=== PATIENT | female | born 1970 | race Caucasian/White ===

== ENCOUNTER 2018-01-25 11:02 | Inpatient (IN) | payer OTHER, MEDICAID ==
[~2018-01-25] VITALS: Ht 152.4 cm; Wt 94.0 kg
[2018-01-25] VITALS (38 sets, daily range): BP systolic 73–127; BP diastolic 33–73
[~2018-01-25 11:02] MED LIST: OMEP20CA10; QUIN20TA; SIMV20TA6; insulin; metformin; naproxen
[2018-01-25] MEDS ORDERED: SODIUM CHLORIDE 0.9% 1000ML BAG (SEPSIS BOLUS) IV ONE (11:30)
[2018-01-25] MEDS ORDERED: PIPERACILLIN/TAZ 3.375G PREMIX 50 ML IV ONE (11:45)
[2018-01-25] MEDS ORDERED: VANCOMYCIN 1 G PREMIX 200 ML IV ONE (11:45)
[2018-01-25] MEDS ORDERED: LEVOFLOXACIN 750MG PREMIX 150 ML IV ONE (11:45)
[2018-01-25 12:21] LABS: HEMATOCRIT. 42.4 % (36.0-48.0); HEMOGLOBIN. 14.2 g/dL (12.0-16.0); MEAN CORPUSCULAR HEMOGLOBIN 28.8 pg (28.0-32.0); MEAN PLATELET VOLUME 8.7 fl (7.4-10.4); PLATELET 276 x1000/uL (130-400); RED BLOOD CELL COUNT 4.93 mill/uL (4.2-5.4); RED CELL DISTRIBUTION WIDTH 13.2 % (11.6-14.6)
[2018-01-25 12:25] LABS: CHLORIDE 100 mEq/L (98-107)
[2018-01-25 12:26] LABS: INR 0.9; PROTHROMBIN TIME 9.3 sec (9.1-11.1)
[2018-01-25] MEDS ORDERED: DEXTROSE 50% WATER 50ML SYRINGE IV ONE ×2 (12:45→12:50)
[2018-01-25] MEDS ORDERED: NOREPINEPHRINE 4 MG in DEXT 5% WATER 246 ML IV ONE ×2 (12:45→13:00)
[2018-01-25 13:03] LABS: PLATELET ESTIMATE NORMAL
[2018-01-25] MEDS ORDERED: LIDOCAINE HCL 1% 10 MG/ML 10ML VIAL ONE (13:10)
[2018-01-25 13:21] LABS: HCG SCREEN NEGATIVE
[2018-01-25 14:02] LABS: CLARITY URINE CLOUDY (CLEAR); COLOR URINE YELLOW (YELLOW); KETONES URINE TRACE (NEGATIVE); LEUKOCYTE ESTERASE URINE TRACE (NEGATIVE); NITRITE URINE NEGATIVE (NEGATIVE); OCCULT BLOOD URINE 1+ (NEGATIVE); PROTEIN URINE TRACE (NEGATIVE); SPECIFIC GRAVITY URINE 1.023 (1.005-1.030)
[2018-01-25] MEDS ORDERED: SODIUM CHLORIDE 0.9% 1,000 ML IV SCH (14:32)
[2018-01-25] MEDS ORDERED: GUAIFENESIN 200MG/10ML SUGAR FREE UDC PO PRN (14:45)
[2018-01-25] MEDS ORDERED: ONDANSETRON HCL 4MG/2ML INJ IV PRN (14:45)
[2018-01-25] MEDS ORDERED: DOCUSATE SODIUM 100MG CAPSULE PO PRN (14:45)
[2018-01-25] MEDS ORDERED: MAGNESIUM/ALUMINUM HYDROXIDE/SIMETHICONE 30ML UDC PO PRN (14:45)
[2018-01-25] MEDS ORDERED: NOREPINEPHRINE 4 MG in DEXT 5% WATER 246 ML IV PRN (16:00)
[2018-01-25] MEDS: ACETAMINOPHEN 325MG TABLET PO PRN (16:00)
[2018-01-25] MEDS: MIDODRINE HCL 2.5MG TABLET PO SCH (16:00)
[2018-01-25] MEDS ORDERED: POTASSIUM CHLORIDE 20MEQ/PACKET PO NR (16:15)
[2018-01-25] MEDS ORDERED: DEXT 5%/0.9% NACL 1,000 ML IV SCH (16:15)
[2018-01-25] MEDS ORDERED: FERR-71 PO (17:19)
[2018-01-25] MEDS ORDERED: LISI40TA4 MT (17:19)
[2018-01-25] MEDS ORDERED: INSU100I28 SQ (17:19)
[2018-01-25] MEDS ORDERED: IBUP-2030 PO (17:19)
[2018-01-25] MEDS ORDERED: DIPH25CA83 MT (17:19)
[2018-01-25] MEDS ORDERED: INSLIS SUBCUT (17:19)
[2018-01-25] MEDS ORDERED: P20 MT (17:19)
[2018-01-25] MEDS ORDERED: METF-816 MT (17:19)
[2018-01-25] MEDS ORDERED: METH2.5T PO (17:19)
[2018-01-25] MEDS ORDERED: FOLI-43 PO (17:19)
[2018-01-25] MEDS ORDERED: FURO20TA4 PO (17:19)
[2018-01-25] MEDS ORDERED: GABA800T97 MT (17:19)
[2018-01-25] MEDS: BLOOD SUGAR DIAGNOSTIC STRIP TEST SCH ×2 (17:50→21:00)
[2018-01-25] MEDS: PIPERACILLIN/TAZ 3.375G PREMIX 50 ML IV SCH (20:58)
[2018-01-25] MEDS ORDERED: PREDNISONE 20MG TABLET PO NR (21:00)
[2018-01-25] MEDS ORDERED: GABAPENTIN 400MG CAPSULE PO SCH (21:00)
[2018-01-25] MEDS ORDERED: GABAPENTIN 400MG CAPSULE PO NR (21:00)
[2018-01-25] MEDS ORDERED: DEXTROSE 50% WATER 50ML SYRINGE IV PRN (22:00)
[2018-01-25] MEDS: SODIUM CHLORIDE 0.9% 1,000 ML IV SCH (22:33)
[2018-01-25] MEDS: IBUPROFEN 800MG TABLET PO PRN (22:34)
[2018-01-25] MEDS: INSULIN LISPRO 100 UNITS/ML SUBCUT SCH (23:15)
[2018-01-26] VITALS (39 sets, daily range): BP systolic 94–139; BP diastolic 27–80
[2018-01-26] MEDS: PIPERACILLIN/TAZ 3.375G PREMIX 50 ML IV SCH ×3 (03:57→22:31)
[2018-01-26 05:43] LABS: CHLORIDE 106 mEq/L (98-107); HEMATOCRIT. 39.3 % (36.0-48.0); HEMOGLOBIN. 12.9 g/dL (12.0-16.0); MEAN CORPUSCULAR HEMOGLOBIN 28.5 pg (28.0-32.0); MEAN CORPUSCULAR VOLUME 86.4 fL (81.0-99.0); MEAN PLATELET VOLUME 8.2 fl (7.4-10.4); PLATELET 239 x1000/uL (130-400); RED BLOOD CELL COUNT 4.55 mill/uL (4.2-5.4); RED CELL DISTRIBUTION WIDTH 13.5 % (11.6-14.6)
[2018-01-26] MEDS: IBUPROFEN 800MG TABLET PO PRN ×2 (06:03→17:00)
[2018-01-26 07:02] LABS: PLATELET ESTIMATE NORMAL
[2018-01-26] MEDS: BLOOD SUGAR DIAGNOSTIC STRIP TEST SCH ×5 (07:28→21:00)
[2018-01-26] MEDS ORDERED: METFORMIN HCL 500MG TABLET PO SCH (08:20)
[2018-01-26] MEDS: PANTOPRAZOLE SODIUM 40 MG/VIAL IV SCH (09:36)
[2018-01-26] MEDS: PREDNISONE 20MG TABLET PO SCH (09:37)
[2018-01-26] MEDS: FOLIC ACID 1MG TABLET PO SCH (09:37)
[2018-01-26] MEDS: GABAPENTIN 300MG CAPSULE PO SCH ×3 (09:37→17:00)
[2018-01-26] MEDS: MIDODRINE HCL 2.5MG TABLET PO SCH ×3 (09:37→17:00)
[2018-01-26] MEDS: FERROUS SULFATE 325MG TABLET PO SCH ×3 (09:37→18:53)
[2018-01-26] MEDS: INSULIN LISPRO 100 UNITS/ML SUBCUT SCH ×4 (09:38→21:40)
[2018-01-26] MEDS ORDERED: IPRATROPIUM/ALBUTEROL 0.5-3(2.5)MG/3ML NEB HHN PRN (11:00)
[2018-01-26] MEDS: SODIUM CHLORIDE 0.9% 1,000 ML IV SCH ×2 (13:10→18:53)
[2018-01-26] MEDS ORDERED: INSULIN LISPRO 100 UNITS/ML SUBCUT SCH (13:45)
[2018-01-26] MEDS: DIPHENHYDRAMINE 25MG CAPSULE PO PRN (21:41)
[2018-01-26] MEDS ORDERED: INSULIN GLARGINE UD 100 UNITS/ML SYR SUBCUT SCH (22:00)
[2018-01-27] VITALS: BP 130/79
[2018-01-27] MEDS: PIPERACILLIN/TAZ 3.375G PREMIX 50 ML IV SCH ×3 (03:59→21:05)
[2018-01-27 04:00] VITALS: BP 109/61
[2018-01-27] MEDS: SODIUM CHLORIDE 0.9% 1,000 ML IV SCH ×2 (04:00→15:00)
[2018-01-27] MEDS: IBUPROFEN 800MG TABLET PO PRN ×3 (04:15→21:04)
[2018-01-27] MEDS: BLOOD SUGAR DIAGNOSTIC STRIP TEST SCH ×4 (06:36→21:26)
[2018-01-27] MEDS: ACETAMINOPHEN 325MG TABLET PO PRN (06:42)
[2018-01-27] MEDS: FERROUS SULFATE 325MG TABLET PO SCH ×3 (06:42→18:29)
[2018-01-27] MEDS: INSULIN LISPRO 100 UNITS/ML SUBCUT SCH ×4 (06:45→21:23)
[2018-01-27 08:00] VITALS: BP_SYST 117; BP_SYST 143; BP_DIAS 68; BP_DIAS 95
[2018-01-27] MEDS: GABAPENTIN 300MG CAPSULE PO SCH ×3 (08:52→18:29)
[2018-01-27] MEDS: FOLIC ACID 1MG TABLET PO SCH (08:52)
[2018-01-27] MEDS: PREDNISONE 20MG TABLET PO SCH (08:52)
[2018-01-27] MEDS: MIDODRINE HCL 2.5MG TABLET PO SCH ×3 (08:53→18:30)
[2018-01-27] MEDS: PANTOPRAZOLE SODIUM 40 MG/VIAL IV SCH (08:54)
[2018-01-27] MEDS ORDERED: INSULIN GLARGINE UD 100 UNITS/ML SYR SUBCUT SCH ×2 (10:00→22:00)
[2018-01-27 12:00] VITALS: BP 136/75
[2018-01-27] MEDS ORDERED: INSULIN REGULAR (HUMULIN R) 300UNITS/3ML SUBCUT ONE (14:00)
[2018-01-27] MEDS ORDERED: INSULIN LISPRO 100 UNITS/ML SUBCUT NR (14:15)
[2018-01-27 16:00] VITALS: BP 122/72
[2018-01-27] MEDS: DIPHENHYDRAMINE 25MG CAPSULE PO PRN (18:29)
[2018-01-27 20:00] VITALS: BP 120/71
[2018-01-28] VITALS: BP 125/71
[2018-01-28] MEDS: ACETAMINOPHEN 325MG TABLET PO PRN ×4 (00:21→22:18)
[2018-01-28 04:00] VITALS: BP 126/67
[2018-01-28] MEDS: PIPERACILLIN/TAZ 3.375G PREMIX 50 ML IV SCH ×3 (04:27→20:33)
[2018-01-28] MEDS: SODIUM CHLORIDE 0.9% 1,000 ML IV SCH ×3 (04:29→20:30)
[2018-01-28] MEDS: IBUPROFEN 800MG TABLET PO PRN ×4 (05:19→23:40)
[2018-01-28] MEDS: FERROUS SULFATE 325MG TABLET PO SCH ×3 (06:25→16:16)
[2018-01-28] MEDS: BLOOD SUGAR DIAGNOSTIC STRIP TEST SCH ×4 (06:25→20:33)
[2018-01-28] MEDS: INSULIN LISPRO 100 UNITS/ML SUBCUT SCH ×4 (06:47→21:12)
[2018-01-28 08:00] VITALS: BP 140/75
[2018-01-28] MEDS: FOLIC ACID 1MG TABLET PO SCH (08:25)
[2018-01-28] MEDS: PANTOPRAZOLE SODIUM 40 MG/VIAL IV SCH (08:25)
[2018-01-28] MEDS: GABAPENTIN 300MG CAPSULE PO SCH ×3 (08:25→16:16)
[2018-01-28] MEDS: MIDODRINE HCL 2.5MG TABLET PO SCH ×3 (08:25→17:17)
[2018-01-28] MEDS: PREDNISONE 20MG TABLET PO SCH (08:25)
[2018-01-28] MEDS: DIPHENHYDRAMINE 25MG CAPSULE PO PRN (09:29)
[2018-01-28 12:00] VITALS: BP 121/60
[2018-01-28 16:00] VITALS: BP 121/72
[2018-01-28 20:00] VITALS: BP 125/71
[2018-01-28] MEDS: INSULIN GLARGINE UD 100 UNITS/ML SYR SUBCUT SCH (21:12)
[2018-01-29] VITALS: BP 155/82
[2018-01-29] MEDS: PIPERACILLIN/TAZ 3.375G PREMIX 50 ML IV SCH ×3 (03:54→20:07)
[2018-01-29] MEDS: SODIUM CHLORIDE 0.9% 1,000 ML IV SCH ×2 (03:54→17:03)
[2018-01-29 04:00] VITALS: BP 138/60
[2018-01-29] MEDS: IBUPROFEN 800MG TABLET PO PRN ×3 (05:44→20:07)
[2018-01-29] MEDS: BLOOD SUGAR DIAGNOSTIC STRIP TEST SCH ×4 (05:47→20:15)
[2018-01-29] MEDS: DIPHENHYDRAMINE 25MG CAPSULE PO PRN ×2 (06:13→17:03)
[2018-01-29] MEDS: INSULIN LISPRO 100 UNITS/ML SUBCUT SCH ×4 (06:18→21:08)
[2018-01-29 08:00] VITALS: BP 156/83
[2018-01-29] MEDS: FOLIC ACID 1MG TABLET PO SCH (08:37)
[2018-01-29] MEDS: FERROUS SULFATE 325MG TABLET PO SCH ×3 (08:37→17:00)
[2018-01-29] MEDS: GABAPENTIN 300MG CAPSULE PO SCH ×3 (08:37→17:03)
[2018-01-29] MEDS: ACETAMINOPHEN 325MG TABLET PO PRN ×3 (08:38→23:34)
[2018-01-29] MEDS: PANTOPRAZOLE SODIUM 40 MG/VIAL IV SCH (08:38)
[2018-01-29] MEDS: MIDODRINE HCL 2.5MG TABLET PO SCH ×3 (08:38→17:03)
[2018-01-29] MEDS: PREDNISONE 20MG TABLET PO SCH (08:40)
[2018-01-29] MEDS ORDERED: METHOTREXATE SODIUM 2 . 5MG TABLET PO SCH (09:00)
[2018-01-29 12:00] VITALS: BP 122/72
[2018-01-29 16:06] VITALS: BP 138/59
[2018-01-29 20:00] VITALS: BP 141/75
[2018-01-29] MEDS: INSULIN GLARGINE UD 100 UNITS/ML SYR SUBCUT SCH (21:08)
[2018-01-30] VITALS: BP 124/69
[2018-01-30] MEDS: IBUPROFEN 800MG TABLET PO PRN ×3 (03:00→17:39)
[2018-01-30 03:30] VITALS: BP 153/80
[2018-01-30] MEDS: PIPERACILLIN/TAZ 3.375G PREMIX 50 ML IV SCH ×3 (04:45→20:33)
[2018-01-30] MEDS: SODIUM CHLORIDE 0.9% 1,000 ML IV SCH ×3 (06:14→22:54)
[2018-01-30] MEDS: BLOOD SUGAR DIAGNOSTIC STRIP TEST SCH ×4 (06:15→20:36)
[2018-01-30] MEDS: INSULIN LISPRO 100 UNITS/ML SUBCUT SCH ×4 (06:43→20:36)
[2018-01-30 08:11] VITALS: BP 128/64
[2018-01-30] MEDS: MIDODRINE HCL 2.5MG TABLET PO SCH ×3 (08:24→17:39)
[2018-01-30] MEDS: FERROUS SULFATE 325MG TABLET PO SCH ×3 (08:24→17:39)
[2018-01-30] MEDS: PANTOPRAZOLE SODIUM 40 MG/VIAL IV SCH (08:24)
[2018-01-30] MEDS: FOLIC ACID 1MG TABLET PO SCH (08:24)
[2018-01-30] MEDS: GABAPENTIN 300MG CAPSULE PO SCH ×3 (08:24→17:39)
[2018-01-30] MEDS: PREDNISONE 20MG TABLET PO SCH (08:24)
[2018-01-30 12:00] VITALS: BP 146/74
[2018-01-30] MEDS: ACETAMINOPHEN 325MG TABLET PO PRN ×2 (12:13→20:09)
[2018-01-30 16:00] VITALS: BP 135/82
[2018-01-30 20:00] VITALS: BP 123/77
[2018-01-30] MEDS: INSULIN GLARGINE UD 100 UNITS/ML SYR SUBCUT SCH (22:57)
[2018-01-31] VITALS: BP 110/65
[2018-01-31] MEDS: IBUPROFEN 800MG TABLET PO PRN ×3 (02:43→17:17)
[2018-01-31 04:00] VITALS: BP 110/65
[2018-01-31] MEDS: PIPERACILLIN/TAZ 3.375G PREMIX 50 ML IV SCH ×3 (04:57→20:42)
[2018-01-31] MEDS: ACETAMINOPHEN 325MG TABLET PO PRN ×3 (05:09→20:42)
[2018-01-31] MEDS: BLOOD SUGAR DIAGNOSTIC STRIP TEST SCH ×4 (06:13→20:43)
[2018-01-31] MEDS: FERROUS SULFATE 325MG TABLET PO SCH ×3 (06:16→17:47)
[2018-01-31] MEDS: INSULIN LISPRO 100 UNITS/ML SUBCUT SCH ×4 (06:39→21:49)
[2018-01-31 08:00] VITALS: BP 141/70
[2018-01-31] MEDS: SODIUM CHLORIDE 0.9% 1,000 ML IV SCH ×2 (09:07→17:50)
[2018-01-31] MEDS: PREDNISONE 20MG TABLET PO SCH (09:09)
[2018-01-31] MEDS: GABAPENTIN 300MG CAPSULE PO SCH ×3 (09:09→17:47)
[2018-01-31] MEDS: FOLIC ACID 1MG TABLET PO SCH (09:09)
[2018-01-31] MEDS: PANTOPRAZOLE SODIUM 40 MG/VIAL IV SCH (09:10)
[2018-01-31] MEDS: MIDODRINE HCL 2.5MG TABLET PO SCH ×3 (09:10→17:47)
[2018-01-31 12:00] VITALS: BP 133/68
[2018-01-31 16:00] VITALS: BP 109/57
[2018-01-31 20:00] VITALS: BP 165/95
[2018-01-31] MEDS: INSULIN GLARGINE UD 100 UNITS/ML SYR SUBCUT SCH (21:49)
[2018-02-01] VITALS: BP 112/55
[2018-02-01] MEDS: IBUPROFEN 800MG TABLET PO PRN ×4 (00:15→22:17)
[2018-02-01 04:00] VITALS: BP 123/68
[2018-02-01] MEDS: PIPERACILLIN/TAZ 3.375G PREMIX 50 ML IV SCH ×3 (04:26→22:17)
[2018-02-01] MEDS: ACETAMINOPHEN 325MG TABLET PO PRN ×2 (04:26→10:47)
[2018-02-01] MEDS: SODIUM CHLORIDE 0.9% 1,000 ML IV SCH ×3 (04:28→20:58)
[2018-02-01] MEDS: FERROUS SULFATE 325MG TABLET PO SCH ×3 (06:54→17:52)
[2018-02-01] MEDS: BLOOD SUGAR DIAGNOSTIC STRIP TEST SCH ×4 (06:54→21:00)
[2018-02-01] MEDS: INSULIN LISPRO 100 UNITS/ML SUBCUT SCH ×4 (07:08→22:19)
[2018-02-01 08:00] VITALS: BP 138/84
[2018-02-01] MEDS: GABAPENTIN 300MG CAPSULE PO SCH ×3 (08:29→17:52)
[2018-02-01] MEDS: FOLIC ACID 1MG TABLET PO SCH (08:30)
[2018-02-01] MEDS: PANTOPRAZOLE SODIUM 40 MG/VIAL IV SCH (08:30)
[2018-02-01] MEDS: MIDODRINE HCL 2.5MG TABLET PO SCH ×3 (08:30→17:52)
[2018-02-01] MEDS: PREDNISONE 20MG TABLET PO SCH (08:30)
[2018-02-01 12:00] VITALS: BP 128/80
[2018-02-01 16:00] VITALS: BP 136/89
[2018-02-01 20:00] VITALS: BP 158/86
[2018-02-01] MEDS: INSULIN GLARGINE UD 100 UNITS/ML SYR SUBCUT SCH (22:20)
[2018-02-02] VITALS (8 sets, daily range): BP systolic 105–150; BP diastolic 58–89
[2018-02-02] MEDS: IBUPROFEN 800MG TABLET PO PRN ×3 (05:00→19:08)
[2018-02-02] MEDS: FERROUS SULFATE 325MG TABLET PO SCH ×3 (05:58→16:22)
[2018-02-02] MEDS: BLOOD SUGAR DIAGNOSTIC STRIP TEST SCH ×4 (06:01→20:07)
[2018-02-02] MEDS: INSULIN LISPRO 100 UNITS/ML SUBCUT SCH ×4 (06:08→20:19)
[2018-02-02] MEDS: SODIUM CHLORIDE 0.9% 1,000 ML IV SCH ×2 (07:53→20:07)
[2018-02-02] MEDS: GABAPENTIN 300MG CAPSULE PO SCH ×3 (08:59→16:22)
[2018-02-02] MEDS: PANTOPRAZOLE SODIUM 40 MG/VIAL IV SCH (08:59)
[2018-02-02] MEDS: ACETAMINOPHEN 325MG TABLET PO PRN ×3 (08:59→22:29)
[2018-02-02] MEDS: PREDNISONE 20MG TABLET PO SCH (08:59)
[2018-02-02] MEDS: MIDODRINE HCL 2.5MG TABLET PO SCH ×3 (09:00→16:30)
[2018-02-02] MEDS: FOLIC ACID 1MG TABLET PO SCH (09:00)
[2018-02-02] MEDS: INSULIN GLARGINE UD 100 UNITS/ML SYR SUBCUT SCH (22:13)
[2018-02-03] VITALS: BP 120/70
[2018-02-03 04:00] VITALS: BP 120/60
[2018-02-03] MEDS: IBUPROFEN 800MG TABLET PO PRN ×3 (04:26→23:47)
[2018-02-03] MEDS: SODIUM CHLORIDE 0.9% 1,000 ML IV SCH ×2 (05:44→20:19)
[2018-02-03] MEDS: BLOOD SUGAR DIAGNOSTIC STRIP TEST SCH ×4 (05:51→20:20)
[2018-02-03] MEDS: INSULIN LISPRO 100 UNITS/ML SUBCUT SCH ×4 (06:21→20:41)
[2018-02-03 08:30] VITALS: BP 136/75
[2018-02-03] MEDS: FERROUS SULFATE 325MG TABLET PO SCH ×3 (09:06→17:34)
[2018-02-03] MEDS: PANTOPRAZOLE SODIUM 40 MG/VIAL IV SCH (09:06)
[2018-02-03] MEDS: GABAPENTIN 300MG CAPSULE PO SCH ×3 (09:06→17:34)
[2018-02-03] MEDS: FOLIC ACID 1MG TABLET PO SCH (09:06)
[2018-02-03] MEDS: PREDNISONE 20MG TABLET PO SCH (09:06)
[2018-02-03] MEDS: MIDODRINE HCL 2.5MG TABLET PO SCH ×3 (09:06→17:34)
[2018-02-03] MEDS: ACETAMINOPHEN 325MG TABLET PO PRN (09:57)
[2018-02-03 12:00] VITALS: BP 147/81
[2018-02-03 16:00] VITALS: BP 136/87
[2018-02-03 20:00] VITALS: BP 135/70
[2018-02-03] MEDS: INSULIN GLARGINE UD 100 UNITS/ML SYR SUBCUT SCH (22:08)
[2018-02-04] VITALS: BP 130/80
[2018-02-04] MEDS: SODIUM CHLORIDE 0.9% 1,000 ML IV SCH ×3 (02:55→23:49)
[2018-02-04 04:00] VITALS: BP 140/70
[2018-02-04] MEDS: ACETAMINOPHEN 325MG TABLET PO PRN ×3 (04:40→17:40)
[2018-02-04] MEDS: BLOOD SUGAR DIAGNOSTIC STRIP TEST SCH ×4 (05:51→20:51)
[2018-02-04] MEDS: INSULIN LISPRO 100 UNITS/ML SUBCUT SCH ×4 (06:15→20:51)
[2018-02-04] MEDS ORDERED: HYPR15DR4 EACHEYE (07:46)
[2018-02-04 08:00] VITALS: BP 126/72
[2018-02-04] MEDS: FERROUS SULFATE 325MG TABLET PO SCH ×3 (08:34→17:31)
[2018-02-04] MEDS: GABAPENTIN 300MG CAPSULE PO SCH ×3 (08:35→17:31)
[2018-02-04] MEDS: FOLIC ACID 1MG TABLET PO SCH (08:35)
[2018-02-04] MEDS: PREDNISONE 20MG TABLET PO SCH (08:35)
[2018-02-04] MEDS: MIDODRINE HCL 2.5MG TABLET PO SCH ×3 (09:00→17:00)
[2018-02-04] MEDS: PANTOPRAZOLE SODIUM 40 MG/VIAL IV SCH (09:00)
[2018-02-04 12:00] VITALS: BP 130/58
[2018-02-04] MEDS: IBUPROFEN 800MG TABLET PO PRN ×2 (12:36→22:31)
[2018-02-04 16:00] VITALS: BP 114/66
[2018-02-04 16:45] LABS: CHLORIDE 106 mEq/L (98-107)
[2018-02-04 16:46] LABS: HEMATOCRIT. 36.5 % (36.0-48.0); HEMOGLOBIN. 11.9 g/dL (12.0-16.0); MEAN CORPUSCULAR HEMOGLOBIN 28.8 pg (28.0-32.0); MEAN CORPUSCULAR VOLUME 88.3 fL (81.0-99.0); MEAN PLATELET VOLUME 8.1 fl (7.4-10.4); PLATELET 236 x1000/uL (130-400); RED BLOOD CELL COUNT 4.14 mill/uL (4.2-5.4); RED CELL DISTRIBUTION WIDTH 13.9 % (11.6-14.6)
[2018-02-04 19:34] LABS: PLATELET ESTIMATE NORMAL
[2018-02-04 20:00] VITALS: BP 120/76
[2018-02-04] MEDS: INSULIN GLARGINE UD 100 UNITS/ML SYR SUBCUT SCH (22:37)
[2018-02-05] VITALS: BP 102/58
[2018-02-05 04:00] VITALS: BP 152/84
[2018-02-05] MEDS: IBUPROFEN 800MG TABLET PO PRN ×3 (04:29→21:08)
[2018-02-05] MEDS: INSULIN LISPRO 100 UNITS/ML SUBCUT SCH ×4 (06:40→21:16)
[2018-02-05] MEDS: BLOOD SUGAR DIAGNOSTIC STRIP TEST SCH ×4 (06:40→21:08)
[2018-02-05 08:00] VITALS: BP 145/85
[2018-02-05] MEDS ORDERED: METHOTREXATE SODIUM 2 . 5MG TABLET PO SCH (09:00)
[2018-02-05] MEDS: PREDNISONE 20MG TABLET PO SCH (09:02)
[2018-02-05] MEDS: GABAPENTIN 300MG CAPSULE PO SCH ×3 (09:02→16:48)
[2018-02-05] MEDS: PANTOPRAZOLE SODIUM 40 MG/VIAL IV SCH (09:02)
[2018-02-05] MEDS: FOLIC ACID 1MG TABLET PO SCH (09:02)
[2018-02-05] MEDS: FERROUS SULFATE 325MG TABLET PO SCH ×3 (09:02→16:48)
[2018-02-05] MEDS: MIDODRINE HCL 2.5MG TABLET PO SCH ×3 (09:03→16:50)
[2018-02-05] MEDS: ACETAMINOPHEN 325MG TABLET PO PRN ×2 (09:04→16:50)
[2018-02-05] MEDS: SODIUM CHLORIDE 0.9% 1,000 ML IV SCH ×2 (11:31→21:09)
[2018-02-05 12:00] VITALS: BP 145/87
[2018-02-05 16:00] VITALS: BP 119/74
[2018-02-05 20:00] VITALS: BP 127/70
[2018-02-05] MEDS: INSULIN GLARGINE UD 100 UNITS/ML SYR SUBCUT SCH (21:17)
[2018-02-06] VITALS: BP 108/61
[2018-02-06] MEDS: ACETAMINOPHEN 325MG TABLET PO PRN ×2 (02:09→10:14)
[2018-02-06 04:00] VITALS: BP 118/66
[2018-02-06] MEDS: IBUPROFEN 800MG TABLET PO PRN ×2 (05:48→17:18)
[2018-02-06] MEDS: INSULIN LISPRO 100 UNITS/ML SUBCUT SCH ×4 (05:48→22:33)
[2018-02-06] MEDS: BLOOD SUGAR DIAGNOSTIC STRIP TEST SCH ×4 (05:48→21:55)
[2018-02-06 08:00] VITALS: BP 101/74
[2018-02-06] MEDS: PREDNISONE 20MG TABLET PO SCH (09:29)
[2018-02-06] MEDS: PANTOPRAZOLE SODIUM 40 MG/VIAL IV SCH (09:29)
[2018-02-06] MEDS: GABAPENTIN 300MG CAPSULE PO SCH ×3 (09:30→16:49)
[2018-02-06] MEDS: FOLIC ACID 1MG TABLET PO SCH (09:30)
[2018-02-06] MEDS: FERROUS SULFATE 325MG TABLET PO SCH ×3 (09:30→16:49)
[2018-02-06] MEDS: MIDODRINE HCL 2.5MG TABLET PO SCH ×3 (09:31→16:49)
[2018-02-06] MEDS: SODIUM CHLORIDE 0.9% 1,000 ML IV SCH ×2 (09:44→22:23)
[2018-02-06 12:10] VITALS: BP 150/85
[2018-02-06 16:00] VITALS: BP 141/82
[2018-02-06 20:00] VITALS: BP 155/82
[2018-02-06] MEDS: INSULIN GLARGINE UD 100 UNITS/ML SYR SUBCUT SCH (22:33)
[2018-02-07] VITALS (7 sets, daily range): BP systolic 111–157; BP diastolic 54–91
[2018-02-07] MEDS: SODIUM CHLORIDE 0.9% 1,000 ML IV SCH ×3 (00:30→19:18)
[2018-02-07] MEDS: IBUPROFEN 800MG TABLET PO PRN ×3 (01:14→17:39)
[2018-02-07] MEDS: BLOOD SUGAR DIAGNOSTIC STRIP TEST SCH ×4 (06:43→21:28)
[2018-02-07] MEDS: INSULIN LISPRO 100 UNITS/ML SUBCUT SCH ×4 (06:43→21:37)
[2018-02-07] MEDS: ACETAMINOPHEN 325MG TABLET PO PRN ×2 (06:44→12:29)
[2018-02-07] MEDS: FERROUS SULFATE 325MG TABLET PO SCH ×3 (08:21→17:45)
[2018-02-07] MEDS: PREDNISONE 20MG TABLET PO SCH (09:20)
[2018-02-07] MEDS: MIDODRINE HCL 2.5MG TABLET PO SCH ×3 (09:20→17:40)
[2018-02-07] MEDS: FOLIC ACID 1MG TABLET PO SCH (09:20)
[2018-02-07] MEDS: GABAPENTIN 300MG CAPSULE PO SCH ×3 (09:21→17:45)
[2018-02-07] MEDS: PANTOPRAZOLE SODIUM 40 MG/VIAL IV SCH (09:25)
[2018-02-07] MEDS ORDERED: INSULIN LISPRO 100 UNITS/ML SUBCUT NR (17:15)
[2018-02-07] MEDS: CLOTRIMAZOLE 1% CREAM 30GM TOP SCH (21:27)
[2018-02-07] MEDS: INSULIN GLARGINE UD 100 UNITS/ML SYR SUBCUT SCH (22:10)
[2018-02-08] VITALS: BP 136/71
[2018-02-08] MEDS: IBUPROFEN 800MG TABLET PO PRN ×3 (02:19→18:43)
[2018-02-08 04:00] VITALS: BP 125/62
[2018-02-08] MEDS: ACETAMINOPHEN 325MG TABLET PO PRN ×2 (06:27→12:56)
[2018-02-08] MEDS: INSULIN LISPRO 100 UNITS/ML SUBCUT SCH ×4 (07:07→21:37)
[2018-02-08] MEDS: BLOOD SUGAR DIAGNOSTIC STRIP TEST SCH ×4 (07:08→21:15)
[2018-02-08 08:00] VITALS: BP 168/87
[2018-02-08] MEDS: PREDNISONE 20MG TABLET PO SCH (09:40)
[2018-02-08] MEDS: FERROUS SULFATE 325MG TABLET PO SCH ×3 (09:40→17:57)
[2018-02-08] MEDS: FOLIC ACID 1MG TABLET PO SCH (09:40)
[2018-02-08] MEDS: GABAPENTIN 300MG CAPSULE PO SCH ×3 (09:40→17:57)
[2018-02-08] MEDS: PANTOPRAZOLE SODIUM 40 MG/VIAL IV SCH (09:40)
[2018-02-08] MEDS: CLOTRIMAZOLE 1% CREAM 30GM TOP SCH ×2 (09:41→21:19)
[2018-02-08 12:00] VITALS: BP 117/58
[2018-02-08 16:00] VITALS: BP 124/74
[2018-02-08 20:00] VITALS: BP 132/74
[2018-02-08] MEDS: AMLODIPINE 5MG TABLET PO SCH (21:14)
[2018-02-08] MEDS: INSULIN GLARGINE UD 100 UNITS/ML SYR SUBCUT SCH (21:47)
[2018-02-09] VITALS: BP 138/82
[2018-02-09] MEDS: IBUPROFEN 800MG TABLET PO PRN ×3 (02:41→21:11)
[2018-02-09 04:00] VITALS: BP 151/87
[2018-02-09] MEDS: ACETAMINOPHEN 325MG TABLET PO PRN ×2 (05:05→18:16)
[2018-02-09] MEDS: FERROUS SULFATE 325MG TABLET PO SCH ×3 (06:47→18:10)
[2018-02-09] MEDS: INSULIN LISPRO 100 UNITS/ML SUBCUT SCH ×4 (06:52→21:32)
[2018-02-09] MEDS: BLOOD SUGAR DIAGNOSTIC STRIP TEST SCH ×4 (06:53→21:03)
[2018-02-09 08:00] VITALS: BP 105/73
[2018-02-09] MEDS: AMLODIPINE 5MG TABLET PO SCH ×2 (09:00→21:03)
[2018-02-09] MEDS: GABAPENTIN 300MG CAPSULE PO SCH ×3 (09:07→18:11)
[2018-02-09] MEDS: FOLIC ACID 1MG TABLET PO SCH (09:08)
[2018-02-09] MEDS: PREDNISONE 20MG TABLET PO SCH (09:08)
[2018-02-09] MEDS: CLOTRIMAZOLE 1% CREAM 30GM TOP SCH ×2 (09:09→21:03)
[2018-02-09] MEDS: PANTOPRAZOLE SODIUM 40 MG/VIAL IV SCH (09:09)
[2018-02-09 12:00] VITALS: BP 150/90
[2018-02-09 20:00] VITALS: BP 132/87
[2018-02-09] MEDS: INSULIN GLARGINE UD 100 UNITS/ML SYR SUBCUT SCH (21:32)
[2018-02-10] VITALS: BP 142/77
[2018-02-10] MEDS: ACETAMINOPHEN 325MG TABLET PO PRN ×3 (02:14→18:05)
[2018-02-10 04:00] VITALS: BP 105/75
[2018-02-10] MEDS: IBUPROFEN 800MG TABLET PO PRN ×3 (05:10→23:40)
[2018-02-10] MEDS: FERROUS SULFATE 325MG TABLET PO SCH ×3 (06:16→18:04)
[2018-02-10] MEDS: BLOOD SUGAR DIAGNOSTIC STRIP TEST SCH ×4 (06:17→21:54)
[2018-02-10] MEDS: INSULIN LISPRO 100 UNITS/ML SUBCUT SCH ×4 (06:45→22:07)
[2018-02-10 08:00] VITALS: BP 105/63
[2018-02-10] MEDS: AMLODIPINE 5MG TABLET PO SCH ×2 (09:00→21:53)
[2018-02-10] MEDS: CLOTRIMAZOLE 1% CREAM 30GM TOP SCH ×2 (09:02→21:54)
[2018-02-10] MEDS: GABAPENTIN 300MG CAPSULE PO SCH ×3 (09:02→18:04)
[2018-02-10] MEDS: PREDNISONE 20MG TABLET PO SCH (09:02)
[2018-02-10] MEDS: FOLIC ACID 1MG TABLET PO SCH (09:02)
[2018-02-10] MEDS: PANTOPRAZOLE SODIUM 40 MG/VIAL IV SCH (09:02)
[2018-02-10 12:00] VITALS: BP 111/68
[2018-02-10 20:00] VITALS: BP 132/72
[2018-02-10] MEDS: INSULIN GLARGINE UD 100 UNITS/ML SYR SUBCUT SCH (22:00)
[2018-02-11] MEDS: ACETAMINOPHEN 325MG TABLET PO PRN ×2 (03:48→12:28)
[2018-02-11 04:00] VITALS: BP 112/81
[2018-02-11] MEDS: BLOOD SUGAR DIAGNOSTIC STRIP TEST SCH ×4 (06:23→20:20)
[2018-02-11] MEDS: FERROUS SULFATE 325MG TABLET PO SCH ×3 (06:23→16:59)
[2018-02-11] MEDS: INSULIN LISPRO 100 UNITS/ML SUBCUT SCH ×4 (06:32→20:15)
[2018-02-11 08:00] VITALS: BP 98/61
[2018-02-11] MEDS: AMLODIPINE 5MG TABLET PO SCH ×2 (09:00→20:06)
[2018-02-11] MEDS: PANTOPRAZOLE SODIUM 40 MG/VIAL IV SCH (10:04)
[2018-02-11] MEDS: GABAPENTIN 300MG CAPSULE PO SCH ×3 (10:05→16:58)
[2018-02-11] MEDS: FOLIC ACID 1MG TABLET PO SCH (10:05)
[2018-02-11] MEDS: PREDNISONE 20MG TABLET PO SCH (10:05)
[2018-02-11] MEDS: IBUPROFEN 800MG TABLET PO PRN ×3 (10:05→23:12)
[2018-02-11] MEDS: CLOTRIMAZOLE 1% CREAM 30GM TOP SCH ×2 (10:15→20:07)
[2018-02-11 12:00] VITALS: BP 123/77
[2018-02-11 16:00] VITALS: BP 128/86
[2018-02-11] MEDS ORDERED: NA PHOS,M-B/NA PHOS,DI-BA ENEMA 118ML PR PRN (16:45)
[2018-02-11] MEDS: LACTULOSE 20G/30ML UDC PO PRN ×2 (16:59→23:18)
[2018-02-11 20:00] VITALS: BP 123/73
[2018-02-11] MEDS: INSULIN GLARGINE UD 100 UNITS/ML SYR SUBCUT SCH (23:17)
[2018-02-12 00:14] VITALS: BP 135/77
[2018-02-12] MEDS: ACETAMINOPHEN 325MG TABLET PO PRN ×3 (04:05→20:38)
[2018-02-12 04:08] VITALS: BP 117/66
[2018-02-12] MEDS: BLOOD SUGAR DIAGNOSTIC STRIP TEST SCH ×4 (05:53→20:39)
[2018-02-12] MEDS: INSULIN LISPRO 100 UNITS/ML SUBCUT SCH ×4 (06:41→20:36)
[2018-02-12 08:00] VITALS: BP 116/58
[2018-02-12] MEDS: FERROUS SULFATE 325MG TABLET PO SCH ×3 (08:04→17:28)
[2018-02-12] MEDS: PREDNISONE 20MG TABLET PO SCH (09:29)
[2018-02-12] MEDS: GABAPENTIN 300MG CAPSULE PO SCH ×3 (09:29→17:28)
[2018-02-12] MEDS: PANTOPRAZOLE SODIUM 40 MG/VIAL IV SCH (09:29)
[2018-02-12] MEDS: CLOTRIMAZOLE 1% CREAM 30GM TOP SCH ×2 (09:30→20:38)
[2018-02-12] MEDS: AMLODIPINE 5MG TABLET PO SCH ×2 (09:30→20:33)
[2018-02-12] MEDS: FOLIC ACID 1MG TABLET PO SCH (09:30)
[2018-02-12] MEDS: LACTULOSE 20G/30ML UDC PO PRN (10:26)
[2018-02-12] MEDS: IBUPROFEN 800MG TABLET PO PRN ×2 (10:26→17:57)
[2018-02-12 12:00] VITALS: BP 117/79
[2018-02-12 16:00] VITALS: BP 118/68
[2018-02-12 20:00] VITALS: BP 118/68
[2018-02-12] MEDS: INSULIN GLARGINE UD 100 UNITS/ML SYR SUBCUT SCH (21:58)
[2018-02-13 00:09] VITALS: BP 112/72
[2018-02-13] MEDS: IBUPROFEN 800MG TABLET PO PRN ×3 (02:57→17:41)
[2018-02-13 04:00] VITALS: BP 111/63
[2018-02-13] MEDS: BLOOD SUGAR DIAGNOSTIC STRIP TEST SCH ×4 (05:57→21:06)
[2018-02-13] MEDS: INSULIN LISPRO 100 UNITS/ML SUBCUT SCH ×4 (06:27→21:32)
[2018-02-13 08:00] VITALS: BP 114/68
[2018-02-13] MEDS: FOLIC ACID 1MG TABLET PO SCH (09:57)
[2018-02-13] MEDS: GABAPENTIN 300MG CAPSULE PO SCH ×3 (09:58→17:31)
[2018-02-13] MEDS: AMLODIPINE 5MG TABLET PO SCH ×2 (09:58→21:00)
[2018-02-13] MEDS: CLOTRIMAZOLE 1% CREAM 30GM TOP SCH ×2 (09:58→21:33)
[2018-02-13] MEDS: PREDNISONE 20MG TABLET PO SCH (09:58)
[2018-02-13] MEDS: PANTOPRAZOLE SODIUM 40 MG/VIAL IV SCH (09:58)
[2018-02-13] MEDS: FERROUS SULFATE 325MG TABLET PO SCH ×3 (10:05→17:31)
[2018-02-13 12:00] VITALS: BP 102/61
[2018-02-13] MEDS: ACETAMINOPHEN 325MG TABLET PO PRN (13:23)
[2018-02-13 16:00] VITALS: BP 128/70
[2018-02-13 20:00] VITALS: BP 101/65
[2018-02-13] MEDS: INSULIN GLARGINE UD 100 UNITS/ML SYR SUBCUT SCH (21:31)
[2018-02-14] VITALS: BP 117/70
[2018-02-14] MEDS: IBUPROFEN 800MG TABLET PO PRN ×2 (03:14→11:44)
[2018-02-14 04:00] VITALS: BP 114/65
[2018-02-14] MEDS: BLOOD SUGAR DIAGNOSTIC STRIP TEST SCH ×2 (06:02→12:35)
[2018-02-14] MEDS: INSULIN LISPRO 100 UNITS/ML SUBCUT SCH ×2 (06:06→13:30)
[2018-02-14] MEDS: ACETAMINOPHEN 325MG TABLET PO PRN (06:48)
[2018-02-14 08:00] VITALS: BP 131/76
[2018-02-14] MEDS: FERROUS SULFATE 325MG TABLET PO SCH ×2 (08:58→11:43)
[2018-02-14] MEDS: PREDNISONE 20MG TABLET PO SCH (08:59)
[2018-02-14] MEDS: FOLIC ACID 1MG TABLET PO SCH (08:59)
[2018-02-14] MEDS: AMLODIPINE 5MG TABLET PO SCH (08:59)
[2018-02-14] MEDS: GABAPENTIN 300MG CAPSULE PO SCH ×2 (08:59→11:43)
[2018-02-14] MEDS: PANTOPRAZOLE SODIUM 40 MG/VIAL IV SCH (08:59)
[2018-02-14] MEDS: CLOTRIMAZOLE 1% CREAM 30GM TOP SCH (08:59)
[2018-02-14] MEDS ORDERED: IOHEXOL-300 50 ML BOTTLE IV ONE (10:19)
[2018-02-14] MEDS ORDERED: LIDOCAINE HCL 1% 20ML VIAL (Pyxis) INJ ONE (10:19)
[2018-02-14] MEDS ORDERED: SODIUM BICARBONATE 4% (2.4MEQ) 5ML VIAL IV ONE (10:19)
[2018-02-14 12:00] VITALS: BP 122/72
[2018-02-14 14:54] VITALS: BP 122/71
== END 2018-02-14 15:42 | disposition home or self-care (01) | DRG 720 ==
LOC: ER 11:02 → EDBEDREQSVC 13:43 → EDBEDREQ 13:43 → CVICU 14:15 → EDBEDREQ 14:18 → ENRESERV 14:25 → 5WST 01-26 23:35
PROVIDERS: ADMIT Hospitalist; ATTEND Hospitalist
PROC: 02HV33Z Insertion of Infusion Device into Superior Vena Cava, Percutaneous Approach (ICD-10-PCS; principal; 2018-01-25)
PROC: B548ZZA Ultrasonography of Superior Vena Cava, Guidance (ICD-10-PCS; 2018-01-25)
DX: A41.9 Sepsis, unspecified organism (principal); J96.00 Acute respiratory failure, unspecified whether with hypoxia or hypercapnia; N17.0 Acute kidney failure with tubular necrosis; R57.1 Hypovolemic shock; M79.7 Fibromyalgia; M06.9 Rheumatoid arthritis, unspecified; E78.5 Hyperlipidemia, unspecified; E11.649 Type 2 diabetes mellitus with hypoglycemia without coma; I10 Essential (primary) hypertension; L97.509 Non-pressure chronic ulcer of other part of unspecified foot with unspecified severity; E78.00 Pure hypercholesterolemia, unspecified; M19.90 Unspecified osteoarthritis, unspecified site; M54.2 Cervicalgia; R35.8 Other polyuria; E66.9 Obesity, unspecified; Z68.41 Body mass index [BMI] 40.0-44.9, adult; Z88.5 Allergy status to narcotic agent; Z88.2 Allergy status to sulfonamides
CPT/HCPCS: 36415; 36569; 70450; 71045; 71250; 74176; 76937; 80048; 80053; 81003; 82962; 83605; 83935; 84443; 84703; 85025; 85610; 87040; 87086; 92950; 93005; 96365; 96366; 96368; 96375; 97116; 97162; 99291; C1725; C9113; J1642; J1815; J1956; J2405; J2543; J3370; J3490; J7030; J7040; J7042; J7060; J7512; J8610; Q0163; Q9967; A4315